=== PATIENT | female | born 1965 | race Caucasian/White ===

== ENCOUNTER 2023-06-12 18:10 | Emergency (ER) | payer BC ==
[2023-06-12] MEDS ORDERED: Diazepam 5 MG TAB ONE (20:46)
[2023-06-12] MEDS ORDERED: Dexamethasone 10 MG/ML VIAL ONE (20:46)
[2023-06-12] MEDS ORDERED: Ketorolac Tromethamine 30 MG/ML VIAL ONE (20:46)
== END 2023-06-12 21:34 | disposition home or self-care (01) ==
LOC: CSHERS 18:10
DX: M54.12 Radiculopathy, cervical region (principal); J45.909 Unspecified asthma, uncomplicated; E78.00 Pure hypercholesterolemia, unspecified
CPT/HCPCS: 36416; 93005; 96372; 96374; J1100; J1885